=== PATIENT | female | born 1955 | race Caucasian/White ===

== ENCOUNTER 2017-02-20 07:48 | Emergency (ER) | payer OTHER | END 2017-02-20 08:59 | disposition home or self-care (01) | LOC: D.ER 07:48 | DX: M25.561 Pain in right knee (principal) ==

== ENCOUNTER 2020-10-24 21:36 | Emergency (ER) | payer BC ==
[~2020-10-24] VITALS: Ht 160 cm; Wt 49.1 kg
[2020-10-24 21:45] VITALS: BP 134/86; Ht 160 cm; Wt 49.1 kg
[2020-10-24] MEDS ORDERED: BUPROPION HCL75 MG PO (21:46)
[2020-10-24 22:50] LABS: BACTERIA FEW HPF (<MOD); BILIRUBIN NEGATIVE (NEGATIVE); KETONE 1+ mg/dL (< 1+); NITRITE NEGATIVE (NEGATIVE); PH 6.5 (5.0-8.0); SQUAMOUS EPITHELIAL 13 HPF (0-4); UROBILINOGEN 2 mg/dL (< 2); WHITE CELLS - URINE >182 HPF (0-4)
[2020-10-24 22:59] LABS: BASOPHILS 0.2 % (0-2); EOSINOPHILS 0.1 % (0-7); HEMATOCRIT 40.6 % (36.0-48.0); HEMOGLOBIN 13.8 g/dL (12-16); LYMPHOCYTES 10.9 % (15-50); MCH 29.8 pg (26.0-34.0); MCV 87.6 fL (80.0-100.0); MEAN PLATELET VOLUME 7.6 fL (7.4-10.4); MONOCYTES 9.3 % (2-11); NEUTROPHILS 79.5 % (40-80); PLATELET COUNT 151 10x3/uL (130-400); RBC 4.63 10x6/uL (4.00-5.40); RDW 14.1 % (11.5-14.5); WBC 2.8 10x3/uL (4.8-10.8)
[2020-10-24 23:12] LABS: CALC OSMOLALITY 270 mosm/kg (275-300); CALCIUM 8.3 mg/dL (8.5-10.1); CARBON DIOXIDE 30.9 mmol/L (21.0-32.0); CHLORIDE - SERUM 99 mmol/L (98-107); CREATININE - SERUM 0.9 mg/dL (0.6-1.3); GLUCOSE 117 mg/dL (74-106); POTASSIUM - SERUM 3.8 mmol/L (3.5-5.1); SODIUM 135 mmol/L (136-145); UREA NITROGEN 12 mg/dL (7-18); eGFR NON AFRICAN AMERICAN 66 mL/min (90-120)
[2020-10-24 23:24] LABS: ALBUMIN 3.5 g/dL (3.4-5.0); ALKALINE PHOSPHATASE 56 U/L (30-120); ALT (SGPT) 32 U/L (10-68); BILIRUBIN - TOTAL 0.44 mg/dL (0.2-1.3); C-REACTIVE PROTEIN 0.4 mg/dL (0.0-0.9); LIPASE 92 U/L (73-393); PROTEIN - SERUM 6.6 g/dL (6.4-8.2); TROPONIN-I < 0.017 ng/mL (0.000-0.060)
[2020-10-25] MEDS ORDERED: ZOFRAN ODT4 MG/UDTAB PO (00:49)
[2020-10-25] MEDS ORDERED: OMNICEF300 MG PO (00:49)
== END 2020-10-25 02:36 | disposition home or self-care (01) ==
LOC: D.ER 21:36
PROVIDERS: Family Medicine
DX: N39.0 Urinary tract infection, site not specified (principal); R11.0 Nausea; R53.1 Weakness; D72.819 Decreased white blood cell count, unspecified; R31.9 Hematuria, unspecified